=== PATIENT | female | born 1945 | race Caucasian/White ===

== ENCOUNTER 2019-11-16 11:49 | Emergency (ER) | payer MEDICAID ==
[~2019-11-16] VITALS: Ht 160 cm; Wt 68.0 kg
[2019-11-16 11:53] VITALS: BP 160/59
[2019-11-16] MEDS ORDERED: ACETAMINOPHEN 325MG TABLET PO STA (12:18)
[2019-11-16] MEDS ORDERED: BACITRACIN ZINC OINT UDPKT TOP ONE (13:30)
[2019-11-16] MEDS ORDERED: TETANUS, DIPHTHERIA, PERTUSSIS VAC/PF 0.5ML (>7YR OLD) IM ONE (13:30)
== END 2019-11-16 14:00 | disposition home or self-care (01) ==
LOC: ER 12:13
DX: S50.11XA Contusion of right forearm, initial encounter (principal); S60.412A Abrasion of right middle finger, initial encounter; I10 Essential (primary) hypertension; E03.9 Hypothyroidism, unspecified; Z87.19 Personal history of other diseases of the digestive system; W01.0XXA Fall on same level from slipping, tripping and stumbling without subsequent striking against object, initial encounter; Y93.89 Activity, other specified; Y92.89 Other specified places as the place of occurrence of the external cause; Y99.8 Other external cause status
CPT/HCPCS: 73090; 73140; 90471; 90715; 99284

== ENCOUNTER 2020-04-07 12:23 | Emergency (ER) | payer MEDICAID ==
[~2020-04-07] VITALS: Ht 165.1 cm; Wt 69.0 kg
[2020-04-07] MEDS ORDERED: CEFTRIAXONE SODIUM 1 G/VIAL IM ONE (13:00)
[2020-04-07] MEDS ORDERED: ACETAMINOPHEN 325MG TABLET PO ONE (13:00)
[2020-04-07 13:29] LABS: BASOPHILS % 0.7 % (0.0-2.0); EOSINOPHILS % 2.3 % (0.0-5.0); HEMATOCRIT. 36.2 % (36.0-48.0); HEMOGLOBIN. 12.2 g/dL (12.0-16.0); LYMPHOCYTES % 30.8 % (20.0-50.0); MEAN CORPUSCULAR HEMOGLOBIN 29.7 pg (28.0-32.0); MEAN CORPUSCULAR VOLUME 88.2 fL (81.0-99.0); MEAN PLATELET VOLUME 8.1 fl (7.4-10.4); NEUTROPHILS % 56.2 % (40.0-76.0); PLATELET 190 x1000/uL (130-400); RED CELL DISTRIBUTION WIDTH 13.3 % (11.6-14.6)
[2020-04-07 13:39] LABS: INR 1.1; PROTHROMBIN TIME 11.2 sec (9.6-11.0)
[2020-04-07 13:40] LABS: CHLORIDE 108 mEq/L (98-107)
[2020-04-07 16:09] VITALS: BP 136/72
== END 2020-04-07 16:13 | disposition home or self-care (01) ==
LOC: ER 12:23
DX: L03.116 Cellulitis of left lower limb (principal); I10 Essential (primary) hypertension; E03.9 Hypothyroidism, unspecified; Z90.49 Acquired absence of other specified parts of digestive tract; Z90.710 Acquired absence of both cervix and uterus
CPT/HCPCS: 36415; 80053; 85025; 85610; 93005; 93971; 96372; 99285; J0696